=== PATIENT | male | born 1980 | race Caucasian/White ===

== ENCOUNTER 2016-11-26 13:57 | Emergency (ER) | payer OTHER ==
[2016-11-26] MEDS ORDERED: Ketorolac Tromethamine 60 MG/2 ML VIAL ONE (14:27)
--- NOTE | 2016-11-26 14:35 | RAD ---
LEFT RIBS FOUR VIEWS: History: Left rib injury. FINDINGS: No evidence of left sided rib fracture identified. Left lung is well expanded. No other osseous abno rmality is seen. IMPRESSION: Unremarkable left ribs. POS: [facility]
== END 2016-11-26 15:00 | disposition home or self-care (01) ==
LOC: NAV ERS 13:57
DX: S20.212A Contusion of left front wall of thorax, initial encounter (principal); S40.012A Contusion of left shoulder, initial encounter; V19.9XXA Pedal cyclist (driver) (passenger) injured in unspecified traffic accident, initial encounter; Y92.830 Public park as the place of occurrence of the external cause
CPT/HCPCS: 96372; J1885